=== PATIENT | female | born 2000 | race Caucasian/White ===

== ENCOUNTER 2020-05-11 10:32 | Emergency (ER) | payer BC, OTHER ==
[~2020-05-11 10:32] MED LIST: COLACE 100MG C100 MG PO; IBUPROFEN600 MG PO; NORCO 10-325 T1 EACH PO; NORCO 5-325 TA1 EACH PO; NORCO 7.5-3251 EACH PO; ORTHO MICRONO0.35 MG PO; PHENERGAN 25 MG25 M1 PO
[2020-05-11 11:47] LABS: HEMOGLOBIN 12.7 gm/dl (12.3-15.3); RED BLOOD COUNT 4.42 M/UL (4.00-5.10); WHITE BLOOD COUNT 8.7 K/UL (4.5-11.0)
[2020-05-11 12:08] LABS: BUN/CREATININE RATIO 18 (0-10)
[2020-05-11] MEDS ORDERED: REGLAN10 MG PO (16:54)
== END 2020-05-11 17:12 | disposition home or self-care (01) ==
LOC: ER1 10:32
PROVIDERS: Family Medicine
DX: O98.511 Other viral diseases complicating pregnancy, first trimester (principal); U07.1 COVID-19; O21.9 Vomiting of pregnancy, unspecified; Z3A.08 8 weeks gestation of pregnancy
CPT/HCPCS: 76817; 80053; 81001; 83690; 84702; 84703; 85025; 96374; 96375; 99284; J2550; J2765; U0002

== ENCOUNTER 2020-05-16 12:29 | Emergency (ER) | payer OTHER ==
[~2020-05-16 12:29] MED LIST changes: +REGLAN10 MG PO
[2020-05-16 14:30] LABS: HEMOGLOBIN 13.2 gm/dl (12.3-15.3); RED BLOOD COUNT 4.57 M/UL (4.00-5.10); WHITE BLOOD COUNT 10.2 K/UL (4.5-11.0)
[2020-05-16 14:53] LABS: BUN/CREATININE RATIO 25 (0-10)
[2020-05-16] MEDS ORDERED: ZOFRAN ODT 4 MG4 MG GT (17:23)
[2020-05-16] MEDS ORDERED: MACROBID 100 M100 MG PO (17:23)
[2020-05-16] MEDS ORDERED: PHENERGAN 12.12.5 MG PR (17:23)
== END 2020-05-16 18:15 | disposition home or self-care (01) ==
LOC: ER1 12:29
PROVIDERS: Physician Assistant Medical
DX: O23.41 Unspecified infection of urinary tract in pregnancy, first trimester (principal); O98.511 Other viral diseases complicating pregnancy, first trimester; U07.1 COVID-19; Z3A.09 9 weeks gestation of pregnancy
CPT/HCPCS: 80053; 81001; 85025; 87086; 93005; 96374; 96375; 99284; J2405; J2765

== ENCOUNTER 2020-06-05 14:23 | Emergency (ER) | payer OTHER ==
[~2020-06-05 14:23] MED LIST changes: +MACROBID 100 M100 MG PO; +PHENERGAN 12.12.5 MG PR; +ZOFRAN ODT 4 MG4 MG GT
[2020-06-05 15:31] LABS: HEMOGLOBIN 13.6 gm/dl (12.3-15.3); RED BLOOD COUNT 4.57 M/UL (4.00-5.10); WHITE BLOOD COUNT 10.3 K/UL (4.5-11.0)
[2020-06-05 15:55] LABS: BUN/CREATININE RATIO 17 (0-10)
[2020-06-05] MEDS ORDERED: ZITHROMAX250 MG PO (18:13)
[2020-06-05] MEDS ORDERED: ZOFRAN ODT 4 MG4 MG GT (18:13)
[2020-06-11 02:08] LABS: HBSAG SCREEN Negative (Negative); HEP A AB, IGM Negative (Negative); HEP B CORE AB, IGM Negative (Negative); HEP C VIRUS AB <0.1 (0.0-0.9)
== END 2020-06-05 18:30 | disposition home or self-care (01) ==
LOC: ER1 14:23
PROVIDERS: Physician Assistant Medical
DX: O98.511 Other viral diseases complicating pregnancy, first trimester (principal); U07.1 COVID-19; R74.8 Abnormal levels of other serum enzymes; Z3A.12 12 weeks gestation of pregnancy
CPT/HCPCS: 71045; 80053; 80074; 81001; 82150; 83690; 85025; 96374; 96375; 99284; J2405; J2765; J7030

== ENCOUNTER 2020-08-19 07:24 | Emergency (ER) | payer OTHER ==
[~2020-08-19 07:24] MED LIST changes: +ZITHROMAX250 MG PO
[2020-08-19 08:45] LABS: HEMOGLOBIN 10.2 gm/dl (12.3-15.3); RED BLOOD COUNT 3.41 M/UL (4.00-5.10); WHITE BLOOD COUNT 8.5 K/UL (4.5-11.0)
[2020-08-19 09:25] LABS: BUN/CREATININE RATIO 17 (0-10)
[2020-08-19] MEDS ORDERED: OMNICEF 300 MG300 MG PO (10:16)
== END 2020-08-19 10:37 | disposition home or self-care (01) ==
LOC: ER1 07:24
PROVIDERS: Emergency Medicine
DX: O9A.212 Injury, poisoning and certain other consequences of external causes complicating pregnancy, second trimester (principal); N39.0 Urinary tract infection, site not specified; Z3A.23 23 weeks gestation of pregnancy; V49.40XA Driver injured in collision with unspecified motor vehicles in traffic accident, initial encounter; Y92.009 Unspecified place in unspecified non-institutional (private) residence as the place of occurrence of the external cause
CPT/HCPCS: 71045; 76815; 80053; 81001; 83690; 85025; 96374; 99284; J0696

== ENCOUNTER → 2020-10-06 | Outpatient (CLI) | payer BC, OTHER ==
[~2020-10-06] MED LIST changes: +OMNICEF 300 MG300 MG PO
== END ==
LOC: US 09-29 10:30
DX: R10.11 Right upper quadrant pain (principal); N13.30 Unspecified hydronephrosis
CPT/HCPCS: 76705

== ENCOUNTER 2020-10-16 05:41 | Outpatient (CLI) | payer BC, OTHER ==
[2020-10-16] MEDS ORDERED: MACROBID 100 M100 MG PO (08:02)
== END 2020-10-16 08:41 | disposition home or self-care (01) ==
LOC: GENOP 05:41
DX: O99.891 Other specified diseases and conditions complicating pregnancy (principal); R10.2 Pelvic and perineal pain; O99.343 Other mental disorders complicating pregnancy, third trimester; F41.9 Anxiety disorder, unspecified; Z87.440 Personal history of urinary (tract) infections; Z79.899 Other long term (current) drug therapy; Z3A.31 31 weeks gestation of pregnancy
CPT/HCPCS: 81001; 87086; G0463

== ENCOUNTER 2020-10-28 18:17 | Outpatient (CLI) | payer BC, OTHER ==
[2020-10-30 17:09] LABS: CHLAMYDIA TRACHOMATIS, NAA Negative (Negative); NEISSERIA GONORRHOEAE, NAA Negative (Negative)
== END 2020-10-28 21:19 | disposition home or self-care (01) ==
LOC: GENOP 18:17
PROVIDERS: Obstetrics & Gynecology
DX: O46.93 Antepartum hemorrhage, unspecified, third trimester (principal); O99.891 Other specified diseases and conditions complicating pregnancy; M54.9 Dorsalgia, unspecified; R10.9 Unspecified abdominal pain; O99.343 Other mental disorders complicating pregnancy, third trimester; F41.9 Anxiety disorder, unspecified; Z87.440 Personal history of urinary (tract) infections; Z3A.33 33 weeks gestation of pregnancy
CPT/HCPCS: 81001; 87210; G0463

== ENCOUNTER 2020-11-19 11:50 | Outpatient (CLI) | payer BC | END 2020-11-19 13:07 | disposition home or self-care (01) | LOC: GENOP 11:50 | DX: O99.891 Other specified diseases and conditions complicating pregnancy (principal); N89.8 Other specified noninflammatory disorders of vagina; R10.9 Unspecified abdominal pain; M54.9 Dorsalgia, unspecified; O36.8130 Decreased fetal movements, third trimester, not applicable or unspecified; O99.343 Other mental disorders complicating pregnancy, third trimester; F41.9 Anxiety disorder, unspecified; Z87.440 Personal history of urinary (tract) infections; Z3A.36 36 weeks gestation of pregnancy | CPT/HCPCS: 81001; 83518; G0463 ==

== ENCOUNTER 2020-12-09 05:51 | Inpatient (IN) | payer BC ==
[~2020-12-09] VITALS: Ht 170.2 cm; Wt 96.2 kg
[2020-12-09] MEDS ORDERED: IRON325 M1 PO (06:26)
[2020-12-09 07:34] LABS: HEMOGLOBIN 10.1 gm/dl (12.3-15.3); RED BLOOD COUNT 3.42 M/UL (4.00-5.10); WHITE BLOOD COUNT 9.1 K/UL (4.5-11.0)
[2020-12-09] MEDS ORDERED: IBUPROFEN800 MG PO (13:11)
[2020-12-09] MEDS ORDERED: COLACE100 MG PO (13:11)
[2020-12-09] MEDS ORDERED: HEMATOGEN SOFT1 EAC1 PO (13:11)
[2020-12-10 06:14] LABS: HEMOGLOBIN 9.1 gm/dl (12.3-15.3)
== END 2020-12-10 15:54 | disposition home or self-care (01) | DRG 807 ==
LOC: OB 05:51
PROVIDERS: ADMIT Obstetrics & Gynecology
PROC: 10E0XZZ Delivery of Products of Conception, External Approach (ICD-10-PCS; principal; 2020-12-09)
PROC: 4A1HXCZ Monitoring of Products of Conception, Cardiac Rate, External Approach (ICD-10-PCS; 2020-12-09)
PROC: 10907ZC Drainage of Amniotic Fluid, Therapeutic from Products of Conception, Via Natural or Artificial Opening (ICD-10-PCS; 2020-12-09)
DX: O99.824 Streptococcus B carrier state complicating childbirth (principal); Z37.0 Single live birth; Z3A.39 39 weeks gestation of pregnancy; Z20.822 Contact with and (suspected) exposure to COVID-19; Z83.3 Family history of diabetes mellitus; Z82.5 Family history of asthma and other chronic lower respiratory diseases; Z87.440 Personal history of urinary (tract) infections
CPT/HCPCS: 36415; 85014; 85018; 85025; 90471; 90715; J0595; J2405; J2590; J2795; J3010; J7120; U0003